=== PATIENT | female | born 1965 | race Hispanic/Latino ===

== ENCOUNTER 2016-07-11 20:00 | Emergency (ER) | payer MEDICAID ==
[2016-07-11 20:22] VITALS: BMI 19.3
--- NOTE | 2016-07-11 20:22 | ED PDOC ---
Arrival/HPI - General Time Seen by Provider: 07/11/16 20:01 Historian: Patient - History of Present Illness Narrative History of Present Illness (Text): 07/11/16 20:20 51yo female present with complaint of right ankle pain. states she twisted her ankle while walking today. states she twisted the same ankle in February and never saw a Doctor for it. Came to ED today for evaluation. Did not take any medication for the pain. Denies any other complaint. Past Medical History - Provider Review Nursing Documentation Reviewed: Yes - Infectious Disease Hx of Infectious Diseases: None - Tetanus Immunization Tetanus Immunization: Unknown - Past Medical History Past Medical History: No Previous - Psychiatric Hx Depression: No Hx Emotional Abuse: No Hx Physical Abuse: No Hx Substance Use: Yes (Heroin) - Surgical History Hx Orthopedic Surgery: Yes (right hand) - Anesthesia Hx Anesthesia Reactions: No Hx Malignant Hyperthermia: No - Suicidal Assessment Feels Threatened In Home Enviroment: No Family/Social History - Physician Review Nursing Documentation Reviewed: Yes Family/Social History: Unknown Family HX Smoking Status: Current Some Days Smoker Hx Alcohol Use: No Hx Substance Use: Yes (Heroin) Hx Substance Use Treatment: No Allergies/Home Meds Allergies/Adverse Reactions: Allergies ORANGE Allergy (Intermediate, Verified 07/11/16 20:24) RASH Home Medications: Home Meds Medication Instructions Recorded Confirmed Amitriptyline Hydrochloride 150 mg PO HS 04/19/14 07/11/16 [Elavil] Gabapentin [Neurontin] 1 tab PO DAILY 07/11/16 07/11/16 Mirtazapine [Remeron] 1 tab PO DAILY 07/11/16 07/11/16 Zolpidem [Ambien] 10 mg PO PRN PRN 07/11/16 07/11/16 Review of Systems - Physician Review All systems were reviewed & negative as marked: Yes - Review of Systems Constitutional: Normal Eyes: Normal ENT: Normal Respiratory: Normal Cardiovascular: Normal Gastrointestinal: Normal Genitourinary Female: Normal Musculoskeletal: Arthralgias (Right ankle pain) Skin: Normal Neurological: Normal Endocrine: Normal Hemo/Lymphatic: Normal Psychiatric: Normal Physical Exam Vital Signs Reviewed: Yes Vital Signs Temp Pulse Resp BP Pulse Ox 07/11/16 20:48 98.2 F 104 H 16 133/65 100 07/11/16 20:21 98.3 F 83 18 133/54 L 96 Temperature: Afebrile Blood Pressure: Normal Pulse: Regular Respiratory Rate: Normal Appearance: Positive for: Well-Appearing, Non-Toxic, Comfortable Pain Distress: None Mental Status: Positive for: Alert and Oriented X 3 - Systems Exam Head: Present: Atraumatic, Normocephalic Pupils: Present: PERRL Extroacular Muscles: Present: EOMI Conjunctiva: Present: Normal Mouth: Present: Moist Mucous Membranes Neck: Present: Normal Range of Motion Respiratory/Chest: Present: Clear to Auscultation, Good Air Exchange. No: Respiratory Distress, Accessory Muscle Use Cardiovascular: Present: Regular Rate and Rhythm, Normal S1, S2. No: Murmurs Abdomen: Present: Normal Bowel Sounds. No: Tenderness, Distention, Peritoneal Signs Back: Present: Normal Inspection Upper Extremity: Present: Normal Inspection. No: Cyanosis, Edema Lower Extremity: Present: NORMAL PULSES, Normal ROM, Tenderness (Over the right lateral malleolus), Swelling (Mild swelling noted over the lateral malleolus), Neurovascularly Intact. No: Edema, Erythema, Deformity, Temperature Abnormalties Neurological: Present: GCS=15, CN II-XII Intact, Speech Normal Skin: Present: Warm, Dry, Normal Color. No: Rashes Psychiatric: Present: Alert, Oriented x 3, Normal Insight, Normal Concentration Medical Decision Making ED Course and Treatment: 07/11/16 21:03 right ankle xray - No acute fracture noted. Possible? old distal tibial fracture noted Result was DW the pt. Air cast placed. Advised to RICE ankle. Crutches given. Referred to ortho. TRT ED for any new or worsening symptoms. - RAD Interpretation Radiology Orders: 07/11/16 20:19 ANKLE RIGHT 3 VIEWS ROUTINE [RAD] Stat - Medication Orders Current Medication Orders: Discontinued Medications Ibuprofen (Motrin Tab) 600 mg PO STAT STA Stop: 07/11/16 20:23 Last Admin: 07/11/16 20:51 Dose: 600 MG MAR Pain/Vitals Document 07/11/16 20:51 EKEOO (Rec: 07/11/16 20:51 EKEOO [id number]) Pain Reassessment Is This A Pain ReAssessment? No Sleep Is patient sleeping during reassessment? No Presence of Pain Presence of Pain Yes Disposition/Present on Arrival - Present on Arrival Any Indicators Present on Arrival: No History of DVT/PE: No History of Uncontrolled Diabetes: No Urinary Catheter: No History Surgical Site Infection Following: None - Disposition Have Diagnosis and Disposition been Completed?: Yes Diagnosis: Ankle sprain Disposition: HOME/ ROUTINE Disposition Time: 21:15 Patient Plan: Discharge Condition: STABLE Discharge Instructions (ExitCare): Ankle Sprain (ED) Additional Instructions: Rest, Ice, compress and elevate ankle Follow up with orthopedist Return to ED for any new or worsening symptoms Prescriptions: Ibuprofen [Motrin Tab] 600 mg PO Q6 #20 tab Referrals: Pham Stanley MD [Primary Care Provider] - Follow up with primary Massimo Hairston DO [Staff Provider] - Follow up with primary
[2016-07-11 20:49] VITALS: BP 133/65; PULSE 104; RESP 16; TEMP 98.2; O2SAT 100
--- NOTE | 2016-07-12 09:22 | RAD ---
PROCEDURE: Right Ankle Radiographs. HISTORY: ankle pain COMPARISON: None FINDINGS: BONES: Well corticated ossifications inferior to the medial and lateral malleoli old osseous avulsion injuries are consistent with this. This no history of acute trauma. JOINTS: Normal. No osteoarthritis. Ankle mortise maintained. Talar dome intact SOFT TISSUES: There is some lateral perimalleolar soft tissue swelling noted OTHER FINDINGS: None. IMPRESSION: Inferior medial and lateral malleoli are osseous avulsions unlikely remote/chronic. Lateral malleolar soft tissue swelling -correlate clinically. No recent history of trauma provided
== END 2016-07-11 21:47 | disposition home or self-care (01) ==
LOC: ED 20:00
DX: S93.401A Sprain of unspecified ligament of right ankle, initial encounter (principal); X50.1XXA Overexertion from prolonged static or awkward postures, initial encounter; Y93.01 Activity, walking, marching and hiking

== ENCOUNTER 2016-12-29 17:58 | Emergency (ER) | payer SELFPAY ==
[2016-12-29 18:00] VITALS: BMI 19.3
[2016-12-29 18:27] VITALS: RESP 16; TEMP 98.5
--- NOTE | 2016-12-29 18:31 | ED PDOC ---
Arrival/HPI - General Chief Complaint: Substance Abuse Time Seen by Provider: 12/29/16 18:13 Historian: Patient - History of Present Illness Narrative History of Present Illness (Text): 12/29/16 18:30 A 51 year old female with no known past medical history, presents to the emergency department via EMS. She was brought in for "acting strange at [employer]ok reportedly under the influence". At bedside, the patient states that she has been "going through a lot" this year and that her almost this year. The patient denies any drug use. The patient denies fevers, chills, headache, dizziness, sore throat, cough, chest pain, shortness of breath, dyspnea on exertion, abdominal pain, nausea, vomiting, diarrhea, neck pain, back pain, urinary/bowel changes, suicidal/homicidal ideation or any other complaints. 12/29/16 21:51 Time/Duration: Prior to Arrival Symptom Onset: Sudden Symptom Course: Unchanged Activities at Onset: Rest, Light Context: Work Past Medical History - Provider Review Nursing Documentation Reviewed: Yes - Infectious Disease Hx of Infectious Diseases: None - Tetanus Immunization Tetanus Immunization: Unknown - Past Medical History Past Medical History: No Previous - Psychiatric Hx Anxiety: Yes Hx Substance Use: Yes (Heroin) Other/Comment: insomnia - Surgical History Hx Orthopedic Surgery: Yes (right hand) - Anesthesia Hx Anesthesia Reactions: No Hx Malignant Hyperthermia: No - Suicidal Assessment Feels Threatened In Home Enviroment: No Family/Social History - Physician Review Nursing Documentation Reviewed: Yes Family/Social History: No Known Family HX Smoking Status: Current Some Days Smoker Hx Alcohol Use: No Hx Substance Use: Yes (Heroin) Hx Substance Use Treatment: No Allergies/Home Meds Allergies/Adverse Reactions: Allergies ORANGE Allergy (Intermediate, Verified 12/29/16 18:11) RASH Home Medications: Home Meds Medication Instructions Recorded Confirmed Unobtainable 12/29/16 12/29/16 Review of Systems - Physician Review All systems were reviewed & negative as marked: Yes - Review of Systems Constitutional: absent: Fevers, Night Sweats Respiratory: absent: SOB, Cough Cardiovascular: absent: Chest Pain, ZAMARRIPA Gastrointestinal: absent: Abdominal Pain, Stool Changes, Diarrhea, Nausea, Vomiting Genitourinary Female: absent: Urine Output Changes Musculoskeletal: absent: Back Pain, Neck Pain Neurological: absent: Headache, Dizziness Psychiatric: absent: Suicidal Ideation Physical Exam Vital Signs Reviewed: Yes Vital Signs Temp Pulse Resp BP Pulse Ox 12/29/16 18:00 98.5 F 77 16 119/68 100 Temperature: Afebrile Blood Pressure: Normal Pulse: Regular Respiratory Rate: Normal Appearance: Positive for: Well-Appearing, Non-Toxic, Comfortable Pain Distress: None Mental Status: Positive for: Alert and Oriented X 3 Finger Stick Blood Glucose: 121 - Systems Exam Head: Present: Atraumatic, Normocephalic Pupils: Present: PERRL Extroacular Muscles: Present: EOMI Conjunctiva: Present: Normal Mouth: Present: Moist Mucous Membranes Neck: Present: Normal Range of Motion Respiratory/Chest: Present: Clear to Auscultation, Good Air Exchange. No: Respiratory Distress, Accessory Muscle Use Cardiovascular: Present: Regular Rate and Rhythm, Normal S1, S2. No: Murmurs Abdomen: Present: Normal Bowel Sounds. No: Tenderness, Distention, Peritoneal Signs Back: Present: Normal Inspection Upper Extremity: Present: Normal Inspection. No: Cyanosis, Edema Lower Extremity: Present: Normal Inspection. No: Edema Neurological: Present: GCS=15, CN II-XII Intact, Speech Normal Skin: Present: Warm, Dry, Normal Color. No: Rashes Psychiatric: Present: Alert, Oriented x 3, Normal Insight, Normal Concentration , Other (Tearful). No: Suicidal Ideation, Homicidal Ideation Medical Decision Making ED Course and Treatment: 12/29/16 18:35 Impression: A 51 year old female was brought in via EMS for "acting strange at work". The patient is tearful at bedside and denies drug use. Differential Diagnosis included but are not limited to: ro substance abuse, depression, pyschosis. Plan: -- EKG -- Chest X-ray -- Urinalysis -- Labs -- Reassess and disposition Prior Visits: Notes and results from previous visits were reviewed. On 07/11/16 patient came in complaining of right ankle pain. Patient was discharged home with prescription of Motrin. Progress Notes: 12/29/16 19:09 EKG: Ordered, reviewed, and independently interpreted the EKG. Rate : 84 BPM Rhythm : NSR Interpretation : No ST/T- wave changes. 12/29/16 19:46: Patient is medically clear for discharge. As per PES worker, the patient's family states that she has been using heroin.Patient is awake, alert, mentally well. speaking full sentences 12/29/16 21:51 - Lab Interpretations I have reviewed the lab results: Yes - EKG Interpretation Interpreted by ED Physician: Yes Type: 12 lead EKG - Scribe Statement The provider has reviewed the documentation as recorded by the Scribe Kinjal Whiteside Provider Scribe Attestation: All medical record entries made by the Scribe were at my direction and personally dictated by me. I have reviewed the chart and agree that the record accurately reflects my personal performance of the history, physical exam, medical decision making, and the department course for this patient. I have also personally directed, reviewed, and agree with the discharge instructions and disposition. Disposition/Present on Arrival - Present on Arrival Any Indicators Present on Arrival: No History of DVT/PE: No History of Uncontrolled Diabetes: No Urinary Catheter: No History of Decub. Ulcer: No History Surgical Site Infection Following: None - Disposition Have Diagnosis and Disposition been Completed?: Yes Diagnosis: Substance abuse Disposition: HOME/ ROUTINE Disposition Time: 20:33 Condition: STABLE Discharge Instructions (ExitCare): Depression (ED), Polysubstance Abuse (ED) Additional Instructions: follow instructions as per lavender farm worker. return to er with worsening symptoms or concerns. Referrals: [facility] [Outside] - Follow up with primary [facility] [[facility]] - Follow up with primary Forms: [employer] (Lux[place]ish), WORK NOTE
[2016-12-29 19:04] LABS: BASO # 0.03 K/mm3 (0.0-2.0); BASO % 0.3 % (0.0-3.0); EOS # 0.4 (0.0-0.7); EOS % 4.4 % (1.5-5.0); GRAN # 5.28 (1.4-6.5); GRAN % 56.8 % (50.0-68.0); LYMPH % 32.6 % (22.0-35.0); MEAN CELL VOLUME 88.9 fl (80.0-105.0); MEAN CORPUSCULAR HEMOGLOBIN 29.4 pg (25.0-35.0); MEAN CORPUSCULAR HGB CONC 33.1 g/dl (31.0-37.0); MEAN PLATELET VOLUME 10.7 fl (7.0-11.0); MONO # 0.6 (0.1-0.6); MONO % 5.9 % (1.0-6.0); RED CELL DISTRIBUTION WIDTH 13.3 % (11.5-14.5); WHITE BLOOD COUNT 9.3 10^3/ul (4.5-11.0)
[2016-12-29 19:13] LABS: ALB/GLOB RATIO 1.3 (1.1-1.8); ALKALINE PHOSPHATASE 50 U/L (38-126); ALT/SGPT 27 U/L (7-56); AST/SGOT 27 U/L (14-36); BILIRUBIN,TOTAL 0.2 mg/dL (0.2-1.3); BLOOD UREA NITROGEN 11 mg/dL (7-21); CALCIUM 9.1 mg/dL (8.4-10.5); CARBON DIOXIDE 27 mmol/L (21-33); CHLORIDE 102 mmol/L (98-107); GFR AFRICAN-AMERICAN > 60; GLUCOSE,RANDOM 99 mg/dL (70-110); POTASSIUM 4.2 mmol/L (3.6-5.0); SODIUM 138 mmol/L (132-148); TOTAL PROTEIN 7.6 g/dL (5.8-8.3)
[2016-12-30 02:32] VITALS: BP 120/68; PULSE 80; O2SAT 99
--- NOTE | 2016-12-30 23:09 | CARD ---
APPROVED REPORT EKG Measurement Heart [id number] <Conclusion> Normal sinus rhythm Nonspecific ST and T wave abnormality Abnormal ECG
== END 2016-12-29 20:00 | disposition home or self-care (01) ==
LOC: ED 17:58
DX: F19.10 Other psychoactive substance abuse, uncomplicated (principal)
CPT/HCPCS: 80053; 85025; 90791; 93005; 99285; G0480